=== PATIENT | male | born 1935 | race Caucasian/White ===

== ENCOUNTER → 2025-01-26 12:46 | Outpatient (REF) | payer MEDICARE, OTHER, SELFPAY | LOC: RAD 12:46 | PROVIDERS: ATTENDING PHYSICIAN Specialist; FAMILY PHYSICIAN Family Medicine | DX: I80.202 Phlebitis and thrombophlebitis of unspecified deep vessels of left lower extremity (principal); C61 Malignant neoplasm of prostate; R60.0 Localized edema | CPT/HCPCS: 93971 ==